=== PATIENT | male | born 1955 | race African-American/Black ===

== ENCOUNTER 2016-07-13 14:03 | Inpatient (IN) | payer OTHER ==
[~2016-07-13] VITALS: Ht 190.5 cm; Wt 106.3 kg
--- NOTE | ~2016-07-13 | H ---
[facility] [place] [address] HISTORY AND PHYSICAL Name: MARCELO RCOSS Room #: 212-P ADM IN M.R.#: [id number] Admission: 07/13/16 Attend Phys: Harjit Pro DO Discharge: Date of : 57 Report #: [id number] THIS REPORT FOR: //name// CC: FAM unknown Aissatou Ordonez CHIEF COMPLAINT: Shortness of breath and orthopnea. HISTORY OF PRESENT ILLNESS: The patient is a 61-year-old man with congestive heart failure, systolic dysfunction, with EF of 20%. The patient has not been following diet. He reports compliance to his medications. Last 2 weeks, the patient developed progressively worsening shortness of breath. Last few days, he has had orthopnea. He came to the emergency room, where his BNP was found to be over 4000. Chest x-ray showed cardiomegaly, but no pulmonary infiltrates. The patient received Lasix in the emergency room. He feels slightly better. The patient was diagnosed with congestive heart failure a few years ago. His ejection fraction was 25% in November of last year. He also has pulmonary hypertension. He currently denies chest pains, does not have heart palpitations, blurry vision, or other symptoms. PAST MEDICAL HISTORY: 1. CHF, systolic, ejection fraction 25% and pulmonary artery pressure of 71 based on echo in November 2015. 2. Atrial fibrillation, history of. Status post pacemaker and defibrillator placement. 3. Diabetes mellitus type 2, poor control. 4. Hypertension. 5. Dyslipidemia. CURRENT MEDICATIONS: Lasix 10 mg a day, Coreg 6.25 mg b.i.d., Lipitor 20 mg a day, Eliquis 5 mg b.i.d., insulin Lantus 20 units at night, NovoLog 10 units before meals, lisinopril 10 mg a day, and metformin 1000 mg a day. FAMILY HISTORY: Reviewed and not pertinent to the patient's current condition. SOCIAL HISTORY: The patient lives with his . He does not smoke cigarettes. He does not drink alcohol. REVIEW OF SYSTEMS: As above in HPI section. All others negative. PHYSICAL EXAMINATION: GENERAL: The patient is a middle-aged man who is in no apparent distress. VITAL SIGNS: His blood pressure is 133/98, heart rate is 82, respiration is 18, temperature is 97.5, and oxygen saturation is 94-99%. [place] [address] HISTORY AND PHYSICAL Name: AMERICAMARYLINMARCELO JR Room #: 212-P [facility] IN [facility]#: [id number] Admission: 07/13/16 Attend Phys: Harjit Pro DO Discharge: Date of : 57 Report #: [id number] HEENT: Pupils are equal. Eye movements are normal. Sclerae are anicteric. Oral mucosa is moist. Ear examination is deferred. NECK: Supple. The patient has no thyromegaly. He has mild JVD. RESPIRATORY: Chest moves symmetrically with breathing. The patient has diminished respiratory sounds throughout, but no crackles or wheezes are present. CARDIOVASCULAR: The patient has distant S1 and S2, and possible murmur, systolic. GASTROINTESTINAL: Abdomen is soft, nondistended and nontender. Bowel sounds are present. Hepatomegaly or splenomegaly is not palpated. MUSCULOSKELETAL: The patient has no edema, cyanosis or clubbing. Range of motion is normal. 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 NEUROLOGIC: The patient is alert and oriented x3. His examination is nonfocal. CVA, in November 2015, right frontal, resulting in left-sided weakness. LABORATORY DATA: Electrolytes are normal. Creatinine is 1.5, which is slightly higher than baseline. Glucose is 55. Albumin is 2.9. Liver function tests are normal. BNP is 4400. Troponin is undetectable. On CBC, white count is 3.9, hemoglobin 11.8, hematocrit 33.7, platelets 161. Urinalysis is not available. On chest x-ray, the patient has cardiomegaly. CT angiography of the chest showed no evidence of PE. ASSESSMENT AND PLAN: A 61-year-old man with history of congestive heart failure with systolic dysfunction, who comes today with progressively worsening shortness of breath and orthopnea, consistent with congestive heart failure exacerbation. This is most likely due to noncompliance, given the patient's lack of diet. 1. Congestive heart failure exacerbation, acute on chronic, systolic. As noted, ejection fraction in November of last year was 25%, and pulmonary artery pressure was 71. The patient will be started on fluid and salt restricted diet, and he will be diuresed. Coreg and lisinopril will be continued unchanged. Creatinine will be followed closely. The patient will be monitored on telemetry. So far, he has no acute EKG changes, and his troponin levels are normal. Replanter is notified. Consultation is very much appreciated. 2. Diabetes mellitus type 2, chronically out of control. Insulin regimen will be continued. Metformin will be discontinued, because this medicine is contraindicated in patients with congestive heart failure. Metformin should not be restarted. The patient had slightly low blood sugar today. We will hold glimepiride, and will treat the patient with insulin only at this time. Blood sugars will be monitored closely. Hemoglobin A1c will be checked. [facility] [place] [address] HISTORY AND PHYSICAL Name: MARCELO CROSS Room #: 212-P ADM IN M.R.#: [id number] Admission: 07/13/16 Attend Phys: Harjit Pro DO Discharge: Date of : 57 Report #: [id number] 3. Hypertension. Acceptable control. 4. History of atrial fibrillation, status post ICD and pacemaker placement. Currently, the patient has paced rhythm. Eliquis will be continued unchanged. 5. Acute renal failure, with creatinine of 1.5, from normal baseline. Creatinine will be monitored. 6. Deep venous thrombosis prophylaxis. Unnecessary, the patient is already on Eliquis. <ELECTRONICALLY SIGNED> By: Aissatou Ordonez MD 07/18/16 2227 1710 1743 Asisatou Ordonez MD /nt
--- NOTE | ~2016-07-13 | EKG ---
[address] [place] [address] ELECTROCARDIOGRAM REPORT Name: MARCELO CROSS JR Room #: 212-P ADM IN M.R.#: [id number] Admission: 07/13/16 Attend Phys: Aissatou Ordonez MD Discharge: Date of : 57 Report #: [id number] THIS REPORT FOR: //name// [facility] ED Test Date: 2016-07-13 Test Time: 14:18:35 Pat Name: MARCELO CROSS Department: Room: [facility] Gender: M Purse Seining Hand: Aaliyah [place] : 1955 Requested By: Niles Castillo Order Number: [id number] MD: Praful Leavitt Measurements Intervals [place] Rate: 79 P: 53 [place]: 147 QRS: -31 QRSD: 116 T: 147 QT: 413 QTc: 474 Interpretive Statements Sinus rhythm Ventricular premature complex Nonspecific ST and T wave abnormality Compared to ECG 12/24/2015 06:39:54 Ventricular premature complex(es) now present nonspecific change in the ST-T wave segments Electronically Signed On 07-14-2016 8:48:33 CDT by Praful Leavitt [email or web address] <ELECTRONICALLY SIGNED> By: Praful Leavitt MD, [facility] 07/14/16 0848 1418 1418 Praful Leavitt MD, [facility] /EPI
--- NOTE | ~2016-07-13 | D ---
[facility] [place] [address] DISCHARGE SUMMARY Name: MARCELO CROSS JR Room #: 212-P ADM IN M.R.#: [id number] Admission: 07/13/16 Attend Phys: Raquel Webb MD Discharge: Date of : 57 Report #: [id number] THIS REPORT FOR: //name// CC: FAM unknown Raquel Webb DATE OF SERVICE: 07/19/2016 DISCHARGE DIAGNOSES: 1. Acute on chronic systolic congestive heart failure exacerbation. 2. Severe nonischemic cardiomyopathy with ICD. 3. Paroxysmal atrial fibrillation. 4. Hypertension. 5. Diabetes. 6. Chronic kidney disease. 7. Proximal ventricular tachycardic. CONSULT: Cardiology. PROCEDURES: None. HOSPITAL COURSE: The patient is a 61-year-old male with multiple medical problems including nonischemic cardiomyopathy with an EF of 25%, systolic heart failure, presented to the ER secondary to shortness of breath. Please see details of the admission dictated by Dr. Aissatou Ordonez on 07/13/2016. The patient had also developed progressive orthopnea as well. He was admitted for CHF exacerbation and cardiology was consulted. He was put on IV diuretics and over the past few days, he has diuresed well and is breathing much better. He denies any other complaints and he is very anxious to go home. His pressures are running on the low side of normal, but he is asymptomatic from that perspective. He is very anxious to go home. He denies any other complaints and nurses report no other problems. Cardiology has cleared him for discharge. He had his last echocardiogram in November 2015, at which time his EF was 25% and his PA pressure was 71 mmHg. DISCHARGE DISPOSITION: To home. DISCHARGE PHYSICAL EXAMINATION: VITAL SIGNS: Temperature of 97, pulse of 76, blood pressure 106/74, and O2 sat 100% on room air. GENERAL: He is awake, alert, answering question appropriately, in no acute respiratory distress. HEENT: Normocephalic, atraumatic. Pupils are equal. NECK: Supple. CARDIOVASCULAR: Regular rate and rhythm. No murmurs. LUNGS: Clear to auscultation bilaterally. No crackles or wheezes. [facility] [address] [place] [address] DISCHARGE SUMMARY Name: MARCELO CROSS Room #: 212-P [facility] IN ..#: [id number] Admission: 07/13/16 Attend Phys: Raquel Webb MD Discharge: Date of : 57 Report #: [id number] ABDOMEN: Soft, no distention or tenderness. EXTREMITIES: No edema. He has got compression shocks on. NEUROLOGIC: Nonfocal. DISCHARGE MEDICATIONS: He will go home on amiodarone 200 mg daily, torsemide 20 daily, glimepiride 4 mg daily, Lantus 20 units at bedtime, NovoLog 10 units a.c., atorvastatin 20 daily, apixaban 5 mg b.i.d., and Coreg 25 b.i.d. DIET: Cardiac, low sodium, fluid restriction, diabetic diet. ACTIVITY: As tolerated. FOLLOWUP: Follow up with cardiology in 1 week. Follow up with primary care in 1 week and to seek immediate medical attention if symptoms worsen, recur or if he has any significant medical concerns. Also, labs in 1 week as well. Discharge planning took discharge diagnoses, treatment plan and appropriate followup in detail. He had no further questions. By: [id number] My Ronni Webb MD /nt
[~2016-07-13 14:03] MED LIST: AMARYL4 MG PO; ASA5UEC OR; ATORVASTATIN CA40 MG PO; CARVEDILOL12.5 MG PO; COREG; COREG OR; COREG6.25 MG PO; CVS BUFFERED A325 MG PO; DIGOXIN; ELIQUIS5 MG PO; FUROSEMIDE 20 M20 M1; GLUCOPHAGE1000 MG PO; GLUCOTROL5 MG OR; GLUCOTROL5 MG PO; GLYBURIDE 2.52.5 MG OR; KEFLEX250 MG PO; LANTUS100 UNIT/M SUBQ; LIPITOR 20 MG T20 M1 PO; LISINOPRIL10 MG PO; LISINOPRIL20 MG PO; METFORMIN HCL500 MG PO; NOVOLOG100 UNIT/1 SUBQ
[2016-07-13 14:08] VITALS: BP 133/99
[2016-07-13 14:28] LABS: ABSOLUTE NEUTROPHILS 2.2 thou/uL (1.4-8.2); BASOPHILS 0.9 % (0.0-2.0); EOSINOPHILS 1.8 % (0.0-3.0); HEMATOCRIT 37.7 % (42.0-52.0); HEMOGLOBIN 11.8 gm/dL (14.0-18.0); LYMPHOCYTES 33.6 % (24.0-44.0); MCH 22.5 pg (26.0-34.0); MCHC 31.2 g/dL (28.0-37.0); MCV 72.2 fL (80.0-100.0); MONOCYTES 6.7 % (1.0-8.0); PLATELET COUNT 161 thou/uL (150-400); RBC 5.23 mil/uL (4.50-6.00); RDW 15.8 % (10.5-14.5); WBC 3.9 thou/uL (4.0-11.0)
[2016-07-13 14:29] LABS: MANUAL DIFF NO
[2016-07-13 14:45] LABS: ANION GAP 6 mmol/L (7-16); BUN 20 mg/dL (7-18); CALCIUM 8.5 mg/dL (8.5-10.1); CHLORIDE 107 mmol/L (98-107); CO2 28 mmol/L (21-32); CREATININE 1.5 mg/dL (0.7-1.3); GLUCOSE 55 mg/dL (74-106); POTASSIUM 3.6 mmol/L (3.5-5.1); SODIUM 141 mmol/L (136-145)
[2016-07-13 14:57] LABS: NT-PRO BRAIN NAT PEPTIDE 4441 pg/mL (<300); TROPONIN-I < 0.04 ng/mL (<0.04-0.07)
[2016-07-13 16:27] LABS: ANISOCYTOSIS 1+; HYPOCHROMASIA 2+; MICROCYTES 2+
[2016-07-13] MEDS ORDERED: CARVEDILOL25 MG PO (16:57)
[2016-07-13] MEDS ORDERED: LASIX 20 MG TAB20 MG PO (16:58)
[2016-07-13 17:00] VITALS: BP 116/88
[2016-07-13 17:40] VITALS: BP 124/97
[2016-07-13 20:12] VITALS: BP 117/85
[2016-07-13 23:40] VITALS: BP 114/80
[2016-07-14 04:07] LABS: BASOPHILS 0.3 % (0.0-2.0); EOSINOPHILS 2.3 % (0.0-3.0); HEMATOCRIT 33.5 % (42.0-52.0); HEMOGLOBIN 10.7 gm/dL (14.0-18.0); LYMPHOCYTES 38.7 % (24.0-44.0); MCH 22.9 pg (26.0-34.0); MCHC 32.1 g/dL (28.0-37.0); MCV 71.4 fL (80.0-100.0); PLATELET COUNT 141 thou/uL (150-400); POLYS 50.7 % (36.0-66.0); RBC 4.69 mil/uL (4.50-6.00); RDW 15.6 % (10.5-14.5)
[2016-07-14 04:14] LABS: MANUAL DIFF NO
[2016-07-14 04:19] LABS: CALCIUM 8.1 mg/dL (8.5-10.1); CREATININE 1.4 mg/dL (0.7-1.3); POTASSIUM 3.3 mmol/L (3.5-5.1)
[2016-07-14 05:01] VITALS: BP 115/81
[2016-07-14 05:13] LABS: GLYCOHEMOGLOBIN (HGB A1C) 8.5 % (4.8-5.6)
[2016-07-14 06:50] LABS: HYPOCHROMASIA SLIGHT; MICROCYTES 1+; POLYCHROMASIA OCCASIONAL
[2016-07-14 06:51] LABS: OVALOCYTES FEW
[2016-07-14 07:50] VITALS: BP 147/111
[2016-07-14 11:32] VITALS: BP 123/93
[2016-07-14 16:55] VITALS: BP 120/85
[2016-07-14 20:01] VITALS: BP 115/84
[2016-07-15 03:38] LABS: ABSOLUTE NEUTROPHILS 2.4 thou/uL (1.4-8.2); BASOPHILS 0.8 % (0.0-2.0); EOSINOPHILS 2.5 % (0.0-3.0); HEMATOCRIT 33.4 % (42.0-52.0); HEMOGLOBIN 10.7 gm/dL (14.0-18.0); LYMPHOCYTES 27.8 % (24.0-44.0); MCH 22.8 pg (26.0-34.0); MCHC 32.1 g/dL (28.0-37.0); MONOCYTES 7.5 % (1.0-8.0); PLATELET COUNT 143 thou/uL (150-400); POLYS 61.4 % (36.0-66.0); RBC 4.71 mil/uL (4.50-6.00); RDW 15.3 % (10.5-14.5); WBC 3.9 thou/uL (4.0-11.0)
[2016-07-15 03:45] LABS: MANUAL DIFF NO
[2016-07-15 03:51] LABS: CALCIUM 8.5 mg/dL (8.5-10.1); CREATININE 1.4 mg/dL (0.7-1.3); POTASSIUM 3.5 mmol/L (3.5-5.1)
[2016-07-15 04:47] VITALS: BP 123/86
[2016-07-15 08:10] VITALS: BP 106/74
[2016-07-15 08:30] VITALS: BP 106/74
[2016-07-15 16:31] VITALS: BP 88/56
[2016-07-15 21:05] VITALS: BP 93/66
[2016-07-16 03:36] LABS: CALCIUM 8.1 mg/dL (8.5-10.1); CREATININE 1.4 mg/dL (0.7-1.3); POTASSIUM 3.7 mmol/L (3.5-5.1)
[2016-07-16 06:33] VITALS: BP 112/88
[2016-07-16 07:20] VITALS: BP 103/74
[2016-07-16 11:35] VITALS: BP 117/78
[2016-07-16 16:15] VITALS: BP 99/70
[2016-07-16 20:33] VITALS: BP 92/62
[2016-07-16 23:57] VITALS: BP 106/67
[2016-07-17 04:24] LABS: CALCIUM 8.7 mg/dL (8.5-10.1); CREATININE 1.4 mg/dL (0.7-1.3); POTASSIUM 4.6 mmol/L (3.5-5.1)
[2016-07-17 04:58] VITALS: BP 92/65
[2016-07-17 06:54] VITALS: BP 103/71
[2016-07-17 11:10] VITALS: BP 87/58
[2016-07-17 20:22] VITALS: BP 103/72
[2016-07-18 03:42] LABS: CALCIUM 8.9 mg/dL (8.5-10.1); CREATININE 1.5 mg/dL (0.7-1.3); POTASSIUM 4.6 mmol/L (3.5-5.1)
[2016-07-18 05:10] VITALS: BP 92/69
[2016-07-18 07:40] VITALS: BP 88/45
[2016-07-18 11:45] VITALS: BP 97/60
[2016-07-18 16:30] VITALS: BP 104/68
[2016-07-18 20:40] VITALS: BP 91/65
[2016-07-19 00:32] VITALS: BP 84/59
[2016-07-19 05:11] VITALS: BP 94/70
[2016-07-19 07:42] VITALS: BP 114/80
[2016-07-19] MEDS ORDERED: PACERONE 200 M200 M1 PO (10:54)
[2016-07-19] MEDS ORDERED: DEMADEX20 MG PO (10:56)
[2016-07-19] MEDS ORDERED: LISINOPRIL2.5 MG PO (12:18)
[2016-07-19] MEDS ORDERED: COREG6.25 MG PO (12:18)
[2016-07-19 12:30] VITALS: BP 114/80
== END 2016-07-19 14:20 | disposition home or self-care (01) | DRG 291 ==
LOC: ER 14:03 → EROBS 15:50 → 2N 15:50 → EROBS 17:01 → 2N 17:34
PROVIDERS: Family Medicine; Internal Medicine; Internal Medicine Endocrinology, Diabetes & Metabolism; Nurse Practitioner
DX: I13.0 Hypertensive heart and chronic kidney disease with heart failure and stage 1 through stage 4 chronic kidney disease, or unspecified chronic kidney disease (principal); I50.23 Acute on chronic systolic (congestive) heart failure; N17.9 Acute kidney failure, unspecified; I47.2 Ventricular tachycardia; D68.59 Other primary thrombophilia; E11.649 Type 2 diabetes mellitus with hypoglycemia without coma; I42.8 Other cardiomyopathies; I48.0 Paroxysmal atrial fibrillation; E78.5 Hyperlipidemia, unspecified; E11.65 Type 2 diabetes mellitus with hyperglycemia; I87.2 Venous insufficiency (chronic) (peripheral); E11.22 Type 2 diabetes mellitus with diabetic chronic kidney disease; N18.9 Chronic kidney disease, unspecified; E03.9 Hypothyroidism, unspecified; I27.2 Other secondary pulmonary hypertension; Z79.899 Other long term (current) drug therapy; Z86.73 Personal history of transient ischemic attack (TIA), and cerebral infarction without residual deficits; Z95.810 Presence of automatic (implantable) cardiac defibrillator; Z82.49 Family history of ischemic heart disease and other diseases of the circulatory system; Z83.3 Family history of diabetes mellitus
CPT/HCPCS: 10081

== ENCOUNTER 2016-11-18 22:34 | Inpatient (IN) | payer OTHER ==
[~2016-11-18] VITALS: Ht 190.5 cm; Wt 109.2 kg
--- NOTE | ~2016-11-18 | EKG ---
[place] [address] [facility] [employer] [address] ELECTROCARDIOGRAM REPORT Name: MARCELO CROSS JR Room #: 459-P ADM IN M.R.#: [id number] Admission: 11/19/16 Attend Phys: Harjit Pro DO Discharge: Date of : 57 Report #: [id number] THIS REPORT FOR: //name// [facility] ED Test Date: 2016-11-18 Test Time: 22:42:42 Pat Name: MARCELO CROSS Department: Room: [facility] Gender: M Construction Administrator: [place] : 1955 Requested By: Mario Braswell Order Number: [id number] MD: Praful Leavitt Measurements Intervals [place] Rate: 74 P: 46 [place]: 167 QRS: -39 QRSD: 121 T: 133 QT: 448 QTc: 497 Interpretive Statements Sinus rhythm Nonspecific IVCD with LAD Abnormal T, consider ischemia, lateral leads Compared to ECG 07/13/2016 14:18:35 Ventricular premature complex(es) no longer present Electronically Signed On 11-22-2016 9:15:27 CDT by Praful Leavitt [email or web address] <ELECTRONICALLY SIGNED> By: Praful Leavitt MD, [facility] 11/22/16 0915 2242 2242 Praful Leavitt MD, [facility] /EPI
[~2016-11-18 22:34] MED LIST changes: +CARVEDILOL25 MG PO; +DEMADEX20 MG PO; +LASIX 20 MG TAB20 MG PO; +LISINOPRIL2.5 MG PO; +PACERONE 200 M200 M1 PO
[2016-11-18 22:49] VITALS: BP 87/58
[2016-11-18] MEDS ORDERED: COREG25 MG PO (23:18)
[2016-11-18] MEDS ORDERED: LASIX 40 MG TAB40 M2 PO (23:19)
[2016-11-18] MEDS ORDERED: POTASSIUM20 PO (23:23)
[2016-11-18 23:38] LABS: ABSOLUTE NEUTROPHILS 3.2 thou/uL (1.4-8.2); BASOPHILS 0.5 % (0.0-2.0); EOSINOPHILS 1.8 % (0.0-3.0); HEMATOCRIT 35.9 % (42.0-52.0); HEMOGLOBIN 11.6 gm/dL (14.0-18.0); LYMPHOCYTES 28.7 % (24.0-44.0); MCH 23.7 pg (26.0-34.0); MCHC 32.2 g/dL (28.0-37.0); MCV 73.5 fL (80.0-100.0); MONOCYTES 5.7 % (1.0-8.0); PLATELET COUNT 207 thou/uL (150-400); POLYS 63.3 % (36.0-66.0); RBC 4.89 mil/uL (4.50-6.00); RDW 14.7 % (10.5-14.5); WBC 5.1 thou/uL (4.0-11.0)
[2016-11-18 23:40] LABS: MANUAL DIFF NO
[2016-11-18 23:49] LABS: ANION GAP 11 mmol/L (7-16); BUN 31 mg/dL (7-18); CALCIUM 8.9 mg/dL (8.5-10.1); CHLORIDE 98 mmol/L (98-107); CO2 26 mmol/L (21-32); CREATININE 2.3 mg/dL (0.7-1.3); GLUCOSE 344 mg/dL (74-106); POTASSIUM 3.9 mmol/L (3.5-5.1); SODIUM 135 mmol/L (136-145)
[2016-11-18 23:54] LABS: ALBUMIN 3.5 g/dL (3.4-5.0); ALKALINE PHOSPHATASE 76 U/L (46-116); MAGNESIUM 1.8 mg/dL (1.8-2.4); SGOT 12 U/L (15-37); SGPT 16 U/L (30-65); TOTAL BILIRUBIN 0.5 mg/dL (<0.1-1.0); TOTAL PROTEIN 8.2 g/dL (6.4-8.2); TROPONIN-I < 0.04 ng/mL (<0.04-0.07)
[2016-11-19 02:18] VITALS: BP 99/59
[2016-11-19 02:40] VITALS: BP 99/63
[2016-11-19 05:20] LABS: CALCIUM 8.4 mg/dL (8.5-10.1); CREATININE 1.7 mg/dL (0.7-1.3); POTASSIUM 3.9 mmol/L (3.5-5.1)
[2016-11-19 08:15] VITALS: BP 116/73
[2016-11-19 16:43] VITALS: BP 122/76
[2016-11-19 16:45] VITALS: BP 111/70; BP 95/65
[2016-11-19 20:02] VITALS: BP 119/75
[2016-11-20] VITALS (10 sets, daily range): BP systolic 125–145; BP diastolic 78–96
[2016-11-20 04:51] LABS: CALCIUM 8.5 mg/dL (8.5-10.1); CREATININE 1.2 mg/dL (0.7-1.3); POTASSIUM 3.9 mmol/L (3.5-5.1)
[2016-11-21 03:29] VITALS: BP 151/90
[2016-11-21 07:53] VITALS: BP 141/93
[2016-11-21 12:35] LABS: HEMATOCRIT 34.4 % (42.0-52.0); HEMOGLOBIN 10.9 gm/dL (14.0-18.0); MCH 23.4 pg (26.0-34.0); MCHC 31.7 g/dL (28.0-37.0); MCV 73.6 fL (80.0-100.0); RBC 4.67 mil/uL (4.50-6.00); RDW 14.6 % (10.5-14.5); WBC 4.2 thou/uL (4.0-11.0)
[2016-11-21 12:45] LABS: CALCIUM 8.8 mg/dL (8.5-10.1); CREATININE 1.2 mg/dL (0.7-1.3); POTASSIUM 4.2 mmol/L (3.5-5.1)
[2016-11-21 13:33] VITALS: BP 140/90
[2016-11-21 15:10] VITALS: BP 129/79
[2016-11-21 19:49] VITALS: BP 106/69; BP 93/64
[2016-11-21 19:50] VITALS: BP 116/70
[2016-11-22 04:16] VITALS: BP 115/79
[2016-11-22 06:44] LABS: HEMATOCRIT 33.1 % (42.0-52.0); HEMOGLOBIN 10.6 gm/dL (14.0-18.0); MCH 23.8 pg (26.0-34.0); MCV 74.4 fL (80.0-100.0); RBC 4.45 mil/uL (4.50-6.00); RDW 14.3 % (10.5-14.5); WBC 4.2 thou/uL (4.0-11.0)
[2016-11-22 06:51] LABS: CALCIUM 9.2 mg/dL (8.5-10.1); CREATININE 1.2 mg/dL (0.7-1.3); POTASSIUM 4.3 mmol/L (3.5-5.1)
[2016-11-22 08:44] VITALS: BP 157/106
[2016-11-22] MEDS ORDERED: CARVEDILOL12.5 MG PO (14:04)
[2016-11-22 14:15] VITALS: BP 156/106
== END 2016-11-22 15:59 | disposition home or self-care (01) | DRG 683 ==
LOC: ER 22:34 → 4W 11-19 00:19 → EROBS 11-19 00:19 → 4W 11-19 02:19
PROVIDERS: Emergency Medicine; Internal Medicine; Nurse Practitioner Acute Care
DX: N17.0 Acute kidney failure with tubular necrosis (principal); I50.22 Chronic systolic (congestive) heart failure; I13.0 Hypertensive heart and chronic kidney disease with heart failure and stage 1 through stage 4 chronic kidney disease, or unspecified chronic kidney disease; I95.2 Hypotension due to drugs; E11.22 Type 2 diabetes mellitus with diabetic chronic kidney disease; E11.65 Type 2 diabetes mellitus with hyperglycemia; N18.3 Chronic kidney disease, stage 3 (moderate); I48.0 Paroxysmal atrial fibrillation; I27.2 Other secondary pulmonary hypertension; T50.905A Adverse effect of unspecified drugs, medicaments and biological substances, initial encounter; K59.00 Constipation, unspecified; Z95.0 Presence of cardiac pacemaker; Z79.899 Other long term (current) drug therapy; Z86.73 Personal history of transient ischemic attack (TIA), and cerebral infarction without residual deficits; Z82.49 Family history of ischemic heart disease and other diseases of the circulatory system; Z83.3 Family history of diabetes mellitus; Y92.89 Other specified places as the place of occurrence of the external cause
CPT/HCPCS: 10045

== ENCOUNTER 2017-08-02 19:04 | Inpatient (IN) | payer OTHER ==
[~2017-08-02] VITALS: Ht 190.5 cm; Wt 102.5 kg
[~2017-08-02 19:04] MED LIST changes: +COREG25 MG PO; +LASIX 40 MG TAB40 M2 PO; +POTASSIUM20 PO
[2017-08-02 20:22] VITALS: BP 140/97
[2017-08-02] MEDS ORDERED: CARVEDILOL25 MG PO (21:04)
[2017-08-02] MEDS ORDERED: DEMADEX20 MG PO (21:05)
[2017-08-02] MEDS ORDERED: CENTRUM SILVER1 EAC2 PO (21:06)
[2017-08-02] MEDS ORDERED: STOOL SOFTENER1 EAC2 PO (21:07)
[2017-08-02 21:47] LABS: ABSOLUTE NEUTROPHILS 6.2 thou/uL (1.4-8.2); BASOPHILS 0.8 % (0.0-2.0); HEMATOCRIT 31.8 % (42.0-52.0); HEMOGLOBIN 10.1 gm/dL (14.0-18.0); LYMPHOCYTES 13.8 % (24.0-44.0); MCHC 31.9 g/dL (28.0-37.0); MONOCYTES 7.4 % (1.0-8.0); PLATELET COUNT 291 thou/uL (150-400); RBC 4.42 mil/uL (4.50-6.00); RDW 14.3 % (10.5-14.5)
[2017-08-02 22:06] LABS: CREATININE 1.3 mg/dL (0.7-1.3); POTASSIUM 4.2 mmol/L (3.5-5.1)
[2017-08-02 22:09] LABS: ALBUMIN 2.8 g/dL (3.4-5.0); DIRECT BILIRUBIN 0.3 mg/dL (<0.1-0.3); TOTAL BILIRUBIN 0.9 mg/dL (<0.1-1.0); TOTAL PROTEIN 8.1 g/dL (6.4-8.2)
[2017-08-02 22:15] LABS: ICTOTEST (BILI CONFIRMATORY) Negative (Negative); URINE BILIRUBIN NEGATIVE (Negative); URINE BLOOD NEGATIVE (Negative); URINE CLARITY CLEAR; URINE COLOR YELLOW; URINE GLUCOSE-RANDOM* 3+ (Negative); URINE KETONES 1+ (Negative); URINE LEUKOCYTES NEGATIVE (Negative); URINE NITRITE NEGATIVE (Negative); URINE PROTEIN (DIPSTICK) NEGATIVE (Negative); URINE SPECIFIC GRAVITY 1.015 (1.005-1.035)
[2017-08-02 22:23] LABS: BACTERIA 1-9 Few /HPF (None Seen); CASTS None Seen /LPF (None Seen); CRYSTALS None Seen /LPF (None Seen); SQUAMOUS None Seen /LPF (0-3); URINE RBC None Seen /HPF (0-2); URINE WBC 0-5 Rare /HPF (0-5)
[2017-08-02 23:34] VITALS: BP 120/61
[2017-08-03] VITALS (7 sets, daily range): BP systolic 87–133; BP diastolic 59–85
[2017-08-03 05:46] LABS: CALCIUM 8.7 mg/dL (8.5-10.1); CREATININE 1.2 mg/dL (0.7-1.3); POTASSIUM 4.1 mmol/L (3.5-5.1)
[2017-08-03 05:52] LABS: HEMATOCRIT 28.8 % (42.0-52.0); HEMOGLOBIN 9.3 gm/dL (14.0-18.0); MCH 23.2 pg (26.0-34.0); MCHC 32.1 g/dL (28.0-37.0); MCV 72.3 fL (80.0-100.0); RBC 3.99 mil/uL (4.50-6.00); RDW 14.3 % (10.5-14.5); WBC 8.3 thou/uL (4.0-11.0)
[2017-08-04 03:40] VITALS: BP 122/71
[2017-08-04 08:04] VITALS: BP 139/73
[2017-08-04 15:27] VITALS: BP 133/78
== END 2017-08-04 17:16 | disposition short-term general hospital (02) | DRG 602 ==
LOC: ER 19:04 → 4E 22:37 → EROBS 22:37 → 4E 23:35
PROVIDERS: Nurse Practitioner
DX: L03.116 Cellulitis of left lower limb (principal); E43 Unspecified severe protein-calorie malnutrition; I13.0 Hypertensive heart and chronic kidney disease with heart failure and stage 1 through stage 4 chronic kidney disease, or unspecified chronic kidney disease; I50.9 Heart failure, unspecified; I48.2 Chronic atrial fibrillation; N18.3 Chronic kidney disease, stage 3 (moderate); E78.5 Hyperlipidemia, unspecified; E11.22 Type 2 diabetes mellitus with diabetic chronic kidney disease; I27.20 Pulmonary hypertension, unspecified; D64.9 Anemia, unspecified; Z95.0 Presence of cardiac pacemaker; Z86.73 Personal history of transient ischemic attack (TIA), and cerebral infarction without residual deficits; Z83.3 Family history of diabetes mellitus; Z87.891 Personal history of nicotine dependence; Z79.899 Other long term (current) drug therapy; Z82.49 Family history of ischemic heart disease and other diseases of the circulatory system; Z79.01 Long term (current) use of anticoagulants
CPT/HCPCS: 10183

== ENCOUNTER 2018-07-19 21:39 | Inpatient (IN) | payer OTHER ==
[~2018-07-19] VITALS: Ht 190.5 cm; Wt 108.9 kg
[~2018-07-19 21:39] MED LIST changes: +CENTRUM SILVER1 EAC2 PO; +STOOL SOFTENER1 EAC2 PO
[2018-07-19 21:40] VITALS: BP 101/57
[2018-07-19 21:59] LABS: BE(vivo) 0.5 mmol/L (-2 to +3); HCO3 25.4 mmol/L (22.0-26.0); PCO2 VENOUS 42.2 mmHg (41.0-51.0); PO2 VENOUS 26.9 mmHg (35.0-45.0)
[2018-07-19 22:09] LABS: ABSOLUTE NEUTROPHILS 8.9 thou/uL (1.4-8.2); BASOPHILS 0.5 % (0.0-2.0); EOSINOPHILS 0.9 % (0.0-3.0); HEMATOCRIT 37.3 % (42.0-52.0); HEMOGLOBIN 12.1 gm/dL (14.0-18.0); MCH 23.2 pg (26.0-34.0); MCHC 32.4 g/dL (28.0-37.0); MCV 71.6 fL (80.0-100.0); MONOCYTES 3.9 % (1.0-8.0); PLATELET COUNT 176 thou/uL (150-400); POLYS 88.7 % (36.0-66.0); RBC 5.22 mil/uL (4.50-6.00); RDW 14.4 % (10.5-14.5); WBC 10.1 thou/uL (4.0-11.0)
[2018-07-19 22:12] LABS: ANION GAP 10 mmol/L (7-16); BUN 35 mg/dL (7-18); CALCIUM 9.9 mg/dL (8.5-10.1); CHLORIDE 97 mmol/L (98-107); CO2 28 mmol/L (21-32); CREATININE 1.7 mg/dL (0.7-1.3); GLUCOSE 406 mg/dL (74-106); POTASSIUM 4.1 mmol/L (3.5-5.1); SODIUM 135 mmol/L (136-145)
[2018-07-19 22:21] LABS: ALBUMIN 3.8 g/dL (3.4-5.0); SGOT 14 U/L (15-37); SGPT 19 U/L (30-65); TOTAL BILIRUBIN 0.8 mg/dL (<0.1-1.0); TOTAL PROTEIN 8.5 g/dL (6.4-8.2); TROPONIN-I <0.06 ng/mL (<0.06)
[2018-07-20] VITALS (10 sets, daily range): BP systolic 90–137; BP diastolic 62–95
[2018-07-20 01:45] LABS: URINE BILIRUBIN NEGATIVE (Negative); URINE BLOOD NEGATIVE (Negative); URINE CLARITY CLEAR; URINE COLOR YELLOW; URINE GLUCOSE-RANDOM* 3+ (Negative); URINE KETONES TRACE (Negative); URINE LEUKOCYTES NEGATIVE (Negative); URINE NITRITE NEGATIVE (Negative); URINE PROTEIN (DIPSTICK) NEGATIVE (Negative); URINE SPECIFIC GRAVITY 1.015 (1.005-1.035); URINE UROBILINOGEN 0.2 E.U./dl (0.2-1.0)
[2018-07-20 05:11] LABS: CALCIUM 9.2 mg/dL (8.5-10.1); CREATININE 1.4 mg/dL (0.7-1.3); POTASSIUM 4.2 mmol/L (3.5-5.1)
[2018-07-20 05:26] LABS: CHOLESTEROL 140 mg/dL (<200); HDL CHOLESTEROL 41 mg/dL (>40); LDL CHOLESTEROL 83 mg/dL (<100); SERUM ASSESSMENT Clear; TC:HDL 3.4 Ratio (Not establshd); TRIGLYCERIDE 81 mg/dL (<150); VLDL 16 mg/dL (<40)
--- NOTE | 2018-07-20 08:21 | EKG ---
[address] [address] ELECTROCARDIOGRAM REPORT Name: MARCELO CROSS JR Room #: 349-I ADM IN M.R.#: [id number] ������������������ Admission: 07/20/18 ������������������ Attend Phys: Goran Jewell MD Discharge: ������������������ Date of : 57 Report #: [id number] ����������������������������������������������������������������� [id number] THIS REPORT FOR: //name// [facility] ED Test Date: 2018-07-19 Test Time: 22:11:38 Pat Name: MARCELO CROSS Department: [facility] Gender: M Group Supervisor Yard: [place] : 1955 Requested By: Татьяна Serrano Order Number: [id number] MD: Lew Jaime Measurements Intervals [place] Rate: 103 P: 45 [place]: 144 QRS: -44 QRSD: 119 T: 120 QT: 363 QTc: 475 Interpretive Statements Sinus tachycardia Probable left atrial enlargement Left anterior fascicular block Electronically Signed On 07-20-2018 8:21:13 CDT by Lew Jaime [email or web address] ��������������������������������������������� <ELECTRONICALLY SIGNED> ���������������������������������������� By: Lew Jaime MD ��������������������������������������������� 07/20/18 0821 221 10 Lew Jaime MD /ROSE
--- NOTE | 2018-07-20 16:53 | NUR ---
PT IS A&0X4, SBA D/T IV POLE, SLIGHT L SIDED WEAKNESS, SPOUSE VISITED, RA, C/O GENERALIZED ALL OVER PAIN TREATED SUCCESSFULLY WITH TYLENOL. BILAT SHINS HAVE SOME NICKS/SCABS, CREAM GIVEN. SPOUSE VISITING. SPOKE WITH PHYSICIAN AT 11:55 W/HIGH BG OF 478, PHYSICIAN WENT IN TO THE ROOM AND SPOKE WITH PT AND CHANGED HIS MEDS. GAVE REPORT TO ANOTHER RN AT 16:55 AND TOLD PT HE WOULD BE CARED FOR BY [facility]. ENCOURAGED HIM TO USE CALL LIGHT FOR ANY NEEDS
--- NOTE | 2018-07-20 17:27 | NUR ---
ASSUMED PATIENT CARE AT 1700. NO DISDRESS NOTED. PROGRESSING TOWARDS POC GOALS,
[2018-07-20 23:06] LABS: GLYCOHEMOGLOBIN (HGB A1C) 15.5 % (4.8-5.6)
[2018-07-21] VITALS: BP 112/63
[2018-07-21 04:00] VITALS: BP 111/71
--- NOTE | 2018-07-21 05:06 | NUR ---
SLEPT MOST OF SHIFT. UP WITH STANDBY ASSIST. REMAINS WEAK. DENIES COMPLAINTS OF PAIN OR SHORTNESS OF AIR. STATES IS READY TO GO HOME, WORKING ON GOALS AND PLAN OF CARE FOR NOC. MONITORING BLOOD GLUCOSE AND DIET. PROGRESSING SLOWLY TOWARDS DISCHARGE GOALS. CONTINUE TO ASSES.
[2018-07-21 07:40] VITALS: BP 142/79
[2018-07-21] MEDS ORDERED: CARVEDILOL12.5 MG PO (09:28)
[2018-07-21 09:34] VITALS: BP 142/79
--- NOTE | 2018-07-21 10:51 | NUR ---
ASSUMED PATIENT CARE AT 0700. AO X4. NO DISDRESS NOTED. DC TO HOME NOW.
--- NOTE | 2018-07-22 11:26 | HC ---
[facility] [place] [address] CONSULTATION Name: CROSS,MARCELO Room #: 349-I [facility] IN ..#: [id number] Admission: 07/20/18 ������������������ Attend Phys: Goran Jewell MD Discharge: 07/21/18 ������������������ Date of : 57 Report #: [id number] THIS REPORT FOR: //name// CC: Praful Jewell HISTORY OF PRESENT ILLNESS: The patient is a 63-year-old male with a history of significant heart disease. The patient was on the toilet trying to have a bowel movement when he started to feel ill and was lightheaded. He was able to talk to his family, but his responses were very slow. The family called EMS. At home, his blood pressure normally runs 110/80. The patient has had difficulty with this type of presentation before secondary to low blood pressure. The patient states that during this episode, he had no difficulty speaking, nor did he have any weakness in his arms or legs. He is feeling better today. When the patient arrived in the Emergency Room, his blood sugar was 450. Apparently, his spouse misplaced his glucometer and he has not been able to check his blood sugars. He does have a prior history of stroke. PAST MEDICAL HISTORY: Diabetes, congestive heart failure, cardiac arrhythmia, hypertension, atrial fibrillation, stroke, pulmonary hypertension. PAST SURGICAL HISTORY: Pacemaker insertion. MEDICATIONS AT HOME: Lantus 20 units at bedtime, atorvastatin 40 mg at bedtime, carvedilol 25 mg b.i.d., torsemide 20 mg daily, multivitamin daily, senna as needed, amiodarone 200 mg daily, lisinopril 2.5 mg daily, Eliquis 5 mg b.i.d. ALLERGIES: None. VITAL SIGNS: Temperature 37.3, pulse rate 92, respiratory rate 20, blood pressure 116/73, bedside pulse oximetry 95. LABORATORY DATA: Hematology: White blood cell count 10.1, hemoglobin 12.1, hematocrit 37.3, MCV 71.6, platelet count 176,000. Urinalysis, trace ketones, 3+ glucose. Chemistry: Sodium 134, potassium 4.2, chloride 99, carbon dioxide 23, BUN 30, creatinine 1.4, GFR 62. Glucose this morning is 353. Lactic acid 1.3, calcium 9.2. Liver functions unremarkable. IMAGING: CT scan of the head demonstrates old strokes in the right posterior frontal lobe and right posterior cerebellum. No new strokes were noticed. NEUROLOGIC EXAMINATION: Cranial nerves 2-12 are grossly intact with the exception of a left facial droop. Motor exam demonstrates symmetrical strength in all 4 extremities. The patient has symmetrical fine finger movements, although they may be performed somewhat more slowly on the left. Reflexes are trace. Plantar responses are flexor. Coordination reveals intact [id number]-of-veix. [place] [address] CONSULTATION Name: MARCELO CROSS Room #: 349-I [facility] IN M.R.#: [id number] Admission: 07/20/18 ������������������ Attend Phys: Goran Jewell MD Discharge: 07/21/18 ������������������ Date of : 57 Report #: [id number] IMPRESSION AND PLAN: The patient may have had a near syncopal event after trying to have a bowel movement. A drop in pressure can occur with straining whether this is having a bowel movement, urinating or even coughing. The patient also has uncontrolled blood sugars. Anytime someone has these type of metabolic abnormality, their previous stroke-like symptoms may seem more prominent; however, today, the patient has returned to his baseline. I do not think the patient requires any further workup as I do not think this event is a TIA or stroke. For this patient it is important to get his blood sugar under control and try to make sure his blood pressure does not go too low. He did have a reading of 98/74 in the early hours of the morning. At this point, I have no further suggestions other than perhaps some physical or occupational therapy for the patient. Thank you for your kind referral of the patient. ��������������������������������������������� <ELECTRONICALLY SIGNED> ���������������������������������������� By: Elizabeth Barrow DO ��������������������������������������������� 07/22/18 1126 1026 0127 Elizabeth Barrow DO /nt
== END 2018-07-21 11:13 | disposition home or self-care (01) | DRG 637 ==
LOC: ER 21:39 → 3W 07-20 01:53 → EROBS 07-20 01:53 → 3W 07-20 02:21
PROVIDERS: Nurse Practitioner Family; Physician Assistant; ADMIT Hospitalist
DX: E11.65 Type 2 diabetes mellitus with hyperglycemia (principal); G93.41 Metabolic encephalopathy; N17.9 Acute kidney failure, unspecified; I50.20 Unspecified systolic (congestive) heart failure; I69.354 Hemiplegia and hemiparesis following cerebral infarction affecting left non-dominant side; I13.0 Hypertensive heart and chronic kidney disease with heart failure and stage 1 through stage 4 chronic kidney disease, or unspecified chronic kidney disease; I48.2 Chronic atrial fibrillation; N18.3 Chronic kidney disease, stage 3 (moderate); E78.5 Hyperlipidemia, unspecified; I27.20 Pulmonary hypertension, unspecified; D64.9 Anemia, unspecified; Z91.14 Patient's other noncompliance with medication regimen; Z82.49 Family history of ischemic heart disease and other diseases of the circulatory system; Z79.4 Long term (current) use of insulin; Z95.0 Presence of cardiac pacemaker; Z87.891 Personal history of nicotine dependence; Z79.899 Other long term (current) drug therapy
CPT/HCPCS: 10879

== ENCOUNTER → 2021-04-06 | Outpatient (CLI) | payer OTHER ==
[~2021-04-06] MED LIST changes: +FUROSEMIDE 20 M20 MG PO; +ZESTRIL10 MG PO
== END ==
LOC: SJCVC 13:55
PROVIDERS: ATTEND Internal Medicine
DX: I42.0 Dilated cardiomyopathy (principal); I11.0 Hypertensive heart disease with heart failure; I50.22 Chronic systolic (congestive) heart failure; I47.2 Ventricular tachycardia; I48.0 Paroxysmal atrial fibrillation; E78.5 Hyperlipidemia, unspecified; E11.9 Type 2 diabetes mellitus without complications; Z95.810 Presence of automatic (implantable) cardiac defibrillator; Z79.4 Long term (current) use of insulin; Z79.899 Other long term (current) drug therapy